=== PATIENT | female | born 1995 | race Caucasian/White ===

== ENCOUNTER 2019-07-15 21:40 | Outpatient (CLI) | payer OTHER ==
[~2019-07-15] VITALS: Ht 160 cm; Wt 66.8 kg
[2019-07-15 21:40] VITALS: BP 134/81; PULSE 77; TEMP 98
--- NOTE | 2019-07-15 21:45 | NUR ---
2145 G2L1 39.5 WEEK GEST TO LR6 WITH C/O CONSTANT CONTRACTION SINCE 190 WITH SOME PAINS ON RIGHT SIDE. UTERUS PALPATES SOFT. PT APPEARS VERY COMFORTABLE, TALKATIVE AND NO C/O PAIN AT THIS TIME. EFM ON. SVE DONE WITH /-2 VERY POSTERIOR WITH SOME BS ON GLOVE AFTER EXAM. DR SALGUERO ON UNIT AT THIS TIME AND INFORMED OF PT AND COMPAINT. ADM ASSESSMENT DONE. NO CONTRACTIONS NOTED ON EFM OR PALPATED DURING THIS TIME.
[2019-07-15] MEDS ORDERED: PRENATA1 CTB PO (21:46)
[2019-07-15 21:47] VITALS: BP 134/81; PULSE 77; TEMP 98
[2019-07-15 22:50] VITALS: BP 125/80; PULSE 70
--- NOTE | 2019-07-15 22:50 | NUR ---
2250 STATES CONSTANT CTX IS LESS BUT FEELS HARD AREAS AT DIFFERENT PARTS OF HER ABD. UTERUS PALPATED SOFT. NO CTX ON EFM OR PALPATED. SVE /-2 WITH CERVIX ANTERIOR AND BLOODY SHOW NOTED ON GLOVE AFTER EXAM. DR SALGUERO ON UNIT AT THIS TIME AND REPORT GIVEN. 2310 DISMISSAL INSTRUCTIONS GIVEN AND DISMISS TO HOME PER AMB.
== END 2019-07-15 23:10 | disposition home or self-care (01) ==
LOC: LDRO 21:40
DX: O62.9 Abnormality of forces of labor, unspecified (principal); Z3A.39 39 weeks gestation of pregnancy

== ENCOUNTER 2019-07-19 09:17 | Inpatient (IN) | payer OTHER ==
[2019-07-19] VITALS (9 sets, daily range): BP systolic 92–121; BP diastolic 53–83; PULSE 71–98; TEMP 97.5–98.2
[~2019-07-19] VITALS: Ht 167.6 cm; Wt 66.4 kg
--- NOTE | 2019-07-19 09:10 | NUR ---
909-Patient enters unit via wheelchair with spouse moaning and leaning back. Assisted to LR 2 and patient moves self to bed. Reports SROM an hour ago at 0815 and contractions followed. Reports history of precipitous labor with first child. Denies complications of aside from GBS (+). [id number] Villeda placed patient of [facility]. SVE by this RN 0. 914-Dr. Palomo requested for delivery.
[~2019-07-19 09:17] MED LIST: PRENATA1 CTB PO
--- NOTE | 2019-07-19 09:20 | NUR ---
0920- Report from Queta Soares RN and care of patient assumed. Dr. Palomo at bedside for impending delivery. Nursery RN to bedside. 0925- SVE per provider 2. Patient reports urge to push. 0926- Patient begins pushing with contractions. Moves vertex well. 0934- of viable female attended by Dr. Palomo. Infant to mother's abdomen, care of to Anderson Younger RN. Apgars 8/9/9. 0939- Spont. delivery of placenta. Pitocin bolus started at 333ml/hr/protocol. Fundal massage by RN, firm and one below with vaginal bleeding WNL. Perineum intact. Pericare given and ice pack applied. Patient updated on plan of care.
[2019-07-19 09:45] LABS: BASO # 0.1 (0.0-0.2); BASO % 0.3 % (0.0-2.0); EOS # 0.4 (0.0-0.7); EOS % 2.4 % (0-4.0); GRAN # 11.6 (1.4-6.5); HEMATOCRIT 42.7 % (37.0-47.0); HEMOGLOBIN 14.5 g/dl (12.5-16.0); LYMPH # 2.6 (1.2-3.4); LYMPH % 16.7 % (20.0-51.0); MEAN CELL VOLUME 95 fl (80.0-100.0); MEAN CORPUSCULAR HEMOGLOBIN 32 pg (27.0-31.0); MEAN CORPUSCULAR HGB CONC 34 g/dl (33.0-37.0); MEAN PLATELET VOLUME 10.8 fl (7.4-10.4); MONO % 6.1 % (1.7-9.3); PLATELET COUNT 227 K/mm3 (130-400); REDCELL DISTRIBUTION WIDTH-CV 13.3 % (11.5-14.5)
[2019-07-20 00:30] VITALS: BP 115/63; PULSE 69
[2019-07-20 08:00] VITALS: BP 101/60; PULSE 75; TEMP 97.4
--- NOTE | 2019-07-20 09:11 | NUR ---
Initial visit; Parents thanked Patron Attendant for offering congratulations and God's blessings for the of their daughter. Patron Attendant thanked family for choosing [facility].
[2019-07-20 17:40] VITALS: BP 113/75; PULSE 114; TEMP 98.1
[2019-07-20 20:30] VITALS: BP 107/86; PULSE 65; TEMP 97.8
[2019-07-21 08:05] VITALS: BP 120/65; PULSE 73; TEMP 97.6
[2019-07-21] MEDS ORDERED: PERCOCET 325 MG1 TA2 PO (10:11)
[2019-07-21] MEDS ORDERED: IBU600 MG PO (10:11)
--- NOTE | 2019-07-21 12:55 | NUR ---
Patient given discharge instructions. Encouraged to follow up as scheduled and call with questions or concerns. Patient denies questions. Escorted off unit by Toi Herndon RN.
== END 2019-07-21 13:00 | disposition home or self-care (01) | DRG 807 ==
LOC: LDRO 09:17 → LDR 09:24 → OB 09:24
PROVIDERS: Obstetrics & Gynecology; ADMIT Obstetrics & Gynecology
PROC: 10E0XZZ Delivery of Products of Conception, External Approach (ICD-10-PCS; principal; 2019-07-19)
PROC: 3E033VJ Introduction of Other Hormone into Peripheral Vein, Percutaneous Approach (ICD-10-PCS; 2019-07-19)
DX: O62.3 Precipitate labor (principal); Z37.0 Single live birth; O99.824 Streptococcus B carrier state complicating childbirth; Z3A.40 40 weeks gestation of pregnancy
CPT/HCPCS: J2590; J7120

== ENCOUNTER → 2019-08-02 | Outpatient (CLI) | payer OTHER ==
[~2019-08-02] MED LIST changes: +IBU600 MG PO; +PERCOCET 325 MG1 TA2 PO
== END ==
LOC: ZCOL.LAB 16:33
DX: N61.1 Abscess of the breast and nipple (principal)